=== PATIENT | male | born 1985 | race Caucasian/White ===

== ENCOUNTER 2016-09-30 15:48 | Emergency (ER) | payer OTHER ==
[~2016-09-30] VITALS: Ht 190.5 cm; Wt 94.0 kg
[2016-09-30 15:52] VITALS: BP 111/67; PULSE 76; TEMP 36.5; O2SAT 98; Ht 190.5 cm; Wt 94.0 kg
--- NOTE | 2016-09-30 16:26 | EMERGENCY ROOM VISIT NOTE ---
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 He presents to the emergency department for a sharps injury that he sustained prior to arrival. He reports that he was double gloved while scrubbed in on a total joint arthroplasty, and was opening the glass vial to reconstitute the cement. The glass cut through his glove, causing a small wound to the finger pad of the right second finger. Patient removed his gloves, nurse poured rubbing alcohol over his finger, that he re- gloved until he could break from the case. He then scrubbed with soap and water. He denies any pain or foreign body sensation. Source patient is known, and patient is unaware of any past medical history. Patient has had 4 similar needlestick/sharps injuries and has undergone post exposure laboratory testing and counseling multiple times at our facility. He reports that his tetanus is up-to-date and he believes he has received the hepatitis B vaccination series and he is immune. 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 Review of Systems: Review of systems as per HPI. All other systems reviewed were negative. At least 6 systems reviewed. Past Medical History: Electronic medical records are reviewed and summarized as above/below. See Problem List. Physical Examination: Vital signs reviewed as per nursing notes. GENERAL: Patient is a well-appearing 31-year-old white male who is awake and alert and in no acute distress. SKIN: There is a small puncture wound on the finger pad of the right second finger, over the proximal phalanx. Otherwise, the skin is intact. There is no active bleeding. There is no wound care necessary. ED Course Patient was seen and examined as above. Informed consent for HIV and post exposure testing was obtained, and consents and all other paperwork were completed. The patient had no questions, and was comfortable with the treatment plan, and was instructed to follow up with [facility] for review of her laboratory results. The source patient is known, and testing will be obtained from them as well. Patient declined HIV prophylaxis. DIAGNOSIS: Bodily fluid exposure Work-related injury. Problem List Medical Problems: (1) Facial laceration Status: Resolved (2) Needle stick injury of finger Status: Resolved Current/Historical Medications No Active Prescriptions or Reported Meds Allergies Coded Allergies: No Known Allergies (Unverified , 09/30/16) Vital Signs Date Time Temp Pulse Resp B/P Pulse Ox O2 Delivery O2 Flow Rate FiO2 09/30/16 15:52 36.5 76 16 111/67 98 Room Air Departure Information Impression Primary Impression: Sharps injury Additional Impressions: Employee exposure to body fluids Work related injury Prescriptions No Active Prescriptions or Reported Meds Referrals Jac Thomas D.O.[facility]. (PCP) Patient Instructions [facility] Additional Instructions Follow up with Employee Health for results of your blood work, and any follow up testing as indicated. Cover wound with antibiotic ointment and a bandage until healed. Monitor for signs of infection (increased redness, pain, swelling or drainage), and return to the ED as needed. Problem Qualifiers
== END 2016-09-30 16:37 | disposition home or self-care (01) ==
LOC: C.EDB 15:50 → C.EDD 16:37
DX: S61.230A Puncture wound without foreign body of right index finger without damage to nail, initial encounter (principal); W25.XXXA Contact with sharp glass, initial encounter; Y92.238 Other place in hospital as the place of occurrence of the external cause; Y99.0 Civilian activity done for income or pay; Z77.21 Contact with and (suspected) exposure to potentially hazardous body fluids